=== PATIENT | male | born 1970 | race Caucasian/White ===

== ENCOUNTER 2020-10-29 14:09 | Emergency (ER) | payer BC, SELFPAY ==
[2020-10-29] VITALS (18 sets, daily range): BP systolic 100–138; BP diastolic 62–87; PULSE 66–84; RESP 9–18; O2SAT 97–100
--- NOTE | 2020-10-29 15:03 | ED.GENADULT ---
HPI - General Adult General Chief complaint: Dizziness <Rena Hughes PA-C - Last Filed: 10/29/20 15:50> Stated complaint: lethargic <Rena Hughes PA-C - Last Filed: 10/29/20 15:50> Time Seen by Provider: 10/29/20 14:23 <MATILDE Abdi Last Filed: 10/29/20 15:50> Source: patient and family () <Rena Hughes PA-C - Last Filed: 10/29/20 15:50> Mode of arrival: ambulatory <MATILDE Abdi Last Filed: 10/29/20 15:50> Limitations: no limitations <Rena Hughes PA-C - Last Filed: 10/29/20 15:50> History of Present Illness HPI narrative: 50-year-old male that was brought in by EMS after his called 911 when he had a near syncopal episode. Patient had taken a [place] that was prescribed to him for pain related to shoulder surgery in July. This is the third dose he has taken, with the first dose he also had a near fainting episode at physical therapy. The second dose he states he took later in the day and most likely was not active after that and then this dose today he took approximately an hour before they went to lunch, he did have a couple sips of beer at lunch and then had this episode walking back into his residence. His described it as he became very weak, pale, sweaty and nonresponsive but was awake. When EMS arrived they checked his glucose it was normal they gave him an normal saline bolus and on arrival here he is feeling well. Denies any history of cardiac illness in himself, his daughter had an ablation for WPW when she was ~ 14 yo. She is well now. this is his first prescription of E[place]. <Rena Hughes PA-C - Last Filed: 10/29/20 15:50> Related Data Allergies/adverse reactions: Allergies Allergy/AdvReac Type Severity Reaction Status Date / Time aspirin Allergy Rash Verified 10/29/20 14:25 Penicillins Allergy Rash Verified 10/29/20 14:24 <Rena Hughes PA-C - Last Filed: 10/29/20 15:50> Review of Systems Review of Systems: All systems reviewed & are unremarkable except as noted in HPI and below <Rena Hughes PA-C - Last Filed: 10/29/20 15:50> [facility] Family History Family History: Family History (Updated 10/29/20 @ 15:36 by Rena Hughes PA-C) Daughter Cldne-Acodofbgr-Pjxga syndrome <Rena Hughes PA-C - Last Filed: 10/29/20 15:50> Social History Social History: Social History (Updated 10/29/20 @ 15:37 by Rena Hughes PA-C) Smoking status: Never smoker Alcohol intake: current Alcohol use details: daily Substance use: never Living arrangements: with family Gender identity (if verbalized by the patient): Male <Rena Hughes PA-C - Last Filed: 10/29/20 15:50> Exam Const: General: no acute distress and alert <Rena Hughes PA-C - Last Filed: 10/29/20 15:50> Orientation/consciousness: patient oriented x3 <Rena Hughes PA-C - Last Filed: 10/29/20 15:50> HENMT: Head: normal to inspection <Rena Hughes PA-C - Last Filed: 10/29/20 15:50> Eyes: Conjunctivae: conjunctivae normal <Rena Hughes PA-C - Last Filed: 10/29/20 15:50> Pupils: Equal, round and reactive pupils present <Rena Hughes PA-C - Last Filed: 10/29/20 15:50> Resp: Effort & Inspection: normal respiratory effort <Rena Hughes PA-C - Last Filed: 10/29/20 15:50> Auscultation: clear to auscultation bilaterally <Rena Hughes PA-C - Last Filed: 10/29/20 15:50> Cardio: Rate: regular rate <Rena Hughes PA-C - Last Filed: 10/29/20 15:50> Rhythm: regular rhythm <Rena Hughes PA-C - Last Filed: 10/29/20 15:50> Skin: General skin exam: normal color (warm and dry) <Rena Hughes PA-C - Last Filed: 10/29/20 15:50> Neuro: General: patient oriented x3, moves all extremities and no focal motor deficits <Rena Hughes PA-C - Last Filed: 10/29/20 15:50> Psych: Mental Status: mental status grossly normal <MATILDE Abdi Last Filed: 10/29/20 15:50> Course Co
--- NOTE | 2020-10-29 15:03 | ECG_ITS ---
Measurements Intervals [place] Rate: 72 P: 32 NE: 193 QRS: -20 QRSD: 101 T: 9 QT: 466 QTc: 510 Interpretive Statements SINUS RHYTHM EARLY PRECORDIAL R/S TRANSITION MINIMAL Q WAVES- HIGH LATERAL LEADS BORDERLINE T WAVE ABNORMALITY- INFERIOR LEADS BASELINE ARTIFACT- I, II, AVR, AVL BORDERLINE ECG Electronically Signed On 10-29-2020 17:12:11 [employer] by Tavo Santamaria D.O.
== END 2020-10-29 16:16 | disposition home or self-care (01) ==
PROVIDERS: Emergency Provider General Practice
DX: R55 Syncope and collapse (principal); T50.995A Adverse effect of other drugs, medicaments and biological substances, initial encounter; R94.31 Abnormal electrocardiogram [ECG] [EKG]
CPT/HCPCS: 93005; 99283